=== PATIENT | female | born 1955 | race Caucasian/White ===

== ENCOUNTER → 2016-07-14 | Outpatient (CLI) | payer MEDICARE | LOC: YCFC.O 10:27 | PROVIDERS: ATTEND Nurse Practitioner Family | DX: I10 Essential (primary) hypertension (principal); R73.09 Other abnormal glucose; H35.30 Unspecified macular degeneration; M54.16 Radiculopathy, lumbar region; E78.5 Hyperlipidemia, unspecified; K21.9 Gastro-esophageal reflux disease without esophagitis; R53.83 Other fatigue ==

== ENCOUNTER → 2016-07-17 | Outpatient (CLI) | payer MEDICARE ==
--- NOTE | 2016-07-17 16:37 | US ---
EXAM DESCRIPTION: Thyroid CLINICAL HISTORY: ENLARGED THYROID COMPARISON: None. TECHNIQUE: Routine sonographic imaging of the thyroid gland. FINDINGS: Right thyroid lobe is normal in size and echogenicity measuring 4.3 x 1.5 x 1.4 cm. Hypoechoic well-defined nodule is observed in the upper right thyroid lobe measuring 7 x 6 x 5 mm . It may represent a small cyst is No hyperemia. Thyroid isthmus is normal in appearance measuring 0.2 cm. Left thyroid lobe is normal in size and echogenicity measuring 4.2 x 1.5 x 1.2 cm. A tiny well-defined hypoechoic nodules observed in the upper left thyroid lobe measuring 3 x 1 x 2 mm. It may represent a small cyst. No hyperemia. IMPRESSION: Small hypoechoic regions are observed in both thyroid lobes and are suspected represent small cysts. No worrisome nodule is detected. Electronically signed by: Gregorio Pascual MD 07/17/2016 4:36 PM [facility]
== END | disposition home or self-care (01) ==
LOC: US 13:19
PROVIDERS: ATTEND Nurse Practitioner Family
DX: E04.9 Nontoxic goiter, unspecified (principal)

== ENCOUNTER 2017-09-11 08:57 | Inpatient (IN) | payer MEDICARE ==
--- NOTE | 2017-09-11 09:06 | ED.PDOC ---
History of Present Illness - General Chief Complaint: Bite: Animal/Insect/Human Stated Complaint: feral cat bite both hands Time Seen by Provider: 09/11/17 09:05 Source: patient Exam Limitations: no limitations - History of Present Illness Initial Comments: Natasha Chase 62 y/o female stated that she was bitten by feral cat on her backyard 09 September 2017 incident reported to animal control and had been searching for the cat.Pain and swelling both hands for the last 2 days.no fever. Timing/Duration: other - see hpi Improving Factors: nothing Worsening Factors: movement Associated Symptoms: other - see hpi Allergies/Adverse Reactions: Allergies Diclofenac [From Voltaren] Allergy (Verified 09/11/17 09:18) Vomitting Home Medications: Ambulatory Orders Alprazolam [Alprazolam Odt] 0.25 mg PO AM PRN 09/28/12 Escitalopram Oxalate [Lexapro] 10 mg PO AM 09/28/12 Gabapentin [Neurontin] 300 mg PO TID 09/28/12 Omeprazole [Prilosec] 20 mg PO AM 09/28/12 Rosuvastatin Calcium [Crestor] 40 mg PO HS 09/28/12 Cranberry-Vitamin C-Probiotic [Azo-Cranberry] 450 mg PO AM PRN 03/07/13 Lisinopril & Hydrochlorothiazi [Lisinopril/Hctz 10-12.5 mg] 1 tab PO DAILY 09/11 Milnacipran HCl [Savella] 50 mg PO BID 09/11/17 Multiple Vitamins W/ Minerals [Ocuvite Preservision] 1 tab PO DAILY 09/11/17 Review of Systems - Review of Systems Constitutional: States: no symptoms reported EENTM: States: no symptoms reported Respiratory: States: no symptoms reported Cardiology: States: no symptoms reported Skin: States: see HPI All other Systems: Reviewed and Negative, No Change from Baseline Past Medical History (General) - Patient Medical History Hx Congestive Heart Failure: No Hx Hypertension: Yes Hx Diabetes: No Surgical History: cholecystectomy, other - hysterectomy - Social History Hx Tobacco Use: No Hx Alcohol Use: Yes Hx Physical Abuse: No Hx Emotional Abuse: No - Activities of Daily Living Grooming Ability: Independent Eating (Feeding) Ability: Independent Toileting Ability: Independent Family Medical History - Family History Mother Family History: Unknown Hx Cardiac Disease: Yes - multiple family members Physical Exam - Physical Exam General Appearance: Alert, Comfortable, No apparent distress Eye Exam: bilateral normal Ears, Nose, Throat: hearing grossly normal, normal ENT inspection Neck: non-tender, full range of motion, supple Respiratory: chest non-tender, lungs clear, normal breath sounds Cardiovascular/Chest: normal peripheral pulses, regular rate, rhythm, no murmur Peripheral Pulses: radial,right: 2+, radial,left: 2+ Gastrointestinal/Abdominal: normal bowel sounds, non tender, soft Back Exam: no CVA tenderness, no vertebral tenderness Extremity: other - pain swelling both hands R>L Neurologic: no motor/sensory deficits, alert, oriented x 3 Skin Exam: normal color, warm/dry, other - multiple linear abrasions palmar area both hands Progress - Progress Progress: 09/11/17 09:26 Vital Signs - 8 hr 09/11/17 09:06 Temperature 99.2 F Pulse Rate [ 88 Right Radial] Respiratory 18 Rate Blood Pressure 143/85 [Left Arm] O2 Sat by Pulse 100 Oximetry - Results/Orders Results/Orders: 09/11/17 09:28 IV Care:Saline Lock per Protoc QSHIFT 09/11/17 12:40 DME - Durable Medical Equip .ONCE 09/11/17 Lunch Regular Diet Laboratory Results - last 24 hr 09/11/17 09/11/17 09/11/17 10:10 10:10 10:10 WBC 9.0 RBC 4.13 L Hgb 13.0 Hct 38.1 MCV 92.0 MCH 31.4 H MCHC 34.2 RDW 12.6 Plt Count 265 MPV 8.6 Absolute Neuts (auto) 6.60 Absolute Lymphs (auto) 1.60 Absolute Monos (auto) 0.70 Absolute Eos (auto) 0.00 Absolute Basos (auto) 0.00 Neutrophils % 73.6 Lymphocytes % 17.9 L Monocytes % 7.9 Eosinophils % 0.3 L Basophils % 0.3 Sodium 133 L Potassium 3.5 L Chloride 95 L Carbon Dioxide 26 Anion Gap 15.5 BUN 16 Creatinine 0.94 BUN/Creatinine Ratio 17.0 Random Glucose 104 Serum Osmolality 267.9 L Lactic Acid 1.2 Calcium 9.5 C-Reactive Protein 10.1 H* - EKG/XRAY/CT XRAY: hand - no acute abnormalities Departure - Departure Clinical Impression: Cellulitis and abscess of hand Cat bite of hand Qualifiers: Encounter type: initial encounter Laterality: right Qualified Code(s): S61.451A - Open bite of right hand, initial encounter Time of Disposition: 12:25 Disposition: Admit Patient Condition: Fair Departure Forms: Patient Portal Self Enrollment Instructions: DI for Animal Bites Referrals: [place] Olguin, [employer] [Primary Care Provider] - 1-2 Weeks Home Medications: Ambulatory Orders Alprazolam [Alprazolam Odt] 0.25 mg PO AM PRN 09/28/12 Escitalopram Oxalate [Lexapro] 10 mg PO AM 09/28/12 Gabapentin [Neurontin] 300 mg PO TID 09/28/12 Omeprazole [Prilosec] 20 mg PO AM 09/28/12 Rosuvastatin Calcium [Crestor] 40 mg PO HS 09/28/12 Cranberry-Vitamin C-Probiotic [Azo-Cranberry] 450 mg PO AM PRN 03/07/13 Lisinopril & Hydrochlorothiazi [Lisinopril/Hctz 10-12.5 mg] 1 tab PO DAILY 09/11 Milnacipran HCl [Savella] 50 mg PO BID 09/11/17 Multiple Vitamins W/ Minerals [Ocuvite Preservision] 1 tab PO DAILY 09/11/17 Decision To Admit - Decistion To Admit Decision to Admit Reason: Admit from ER - D/W Bianka Crandall -RONEY/Hospitalist for admit Decision to Admit Date: 09/11/17 Decision to Admit Time: 12:44
[2017-09-11] MEDS ORDERED: TETANUS,DIPHTHERIA,PERTUSSIS 1 EA SYG IM ONE (09:28)
[2017-09-11] MEDS ORDERED: AMPICILLIN & SULBACTAM SODIUM 3 GM in SODIUM CHL 0.9% 100ML MINI-BAG 100 ML IVPB ONE (09:28)
[2017-09-11] MEDS ORDERED: levoFLOXacin 500 MG TAB PO ONE (09:29)
[2017-09-11] MEDS ORDERED: AMPICILLIN & SULBACTAM SODIUM 3 GM VIAL ONE ×3 (10:18→20:03)
[2017-09-11] MEDS ORDERED: SODIUM CHL 0.9% 100ML MINI-BAG 100 ML IVPB ONE ×3 (10:18→20:03)
--- NOTE | 2017-09-11 10:33 | RAD ---
EXAM DESCRIPTION: Hand,Left 2 Views CLINICAL HISTORY: pain COMPARISON: EXAM DESCRIPTION: Hand,Left 2 Views CLINICAL HISTORY: pain COMPARISON: None Available. TECHNIQUE: AP, LATERAL, AND OBLIQUE FINDINGS: Two-view left hand shows no fracture or dislocation. There is no bone lesion. Bones appear osteopenic. Somewhat narrowed appearance of the DIP joints is noted. Degenerative changes are seen in the lateral carpus at the first carpometacarpal joint. Mild degenerative changes at the interphalangeal joint of the thumb and first metacarpal phalangeal joint. IMPRESSION: Osteopenia with degenerative arthritic changes as described. Electronically signed by: Steve Swenson MD 09/11/2017 10:31 AM CDT
--- NOTE | 2017-09-11 10:34 | RAD ---
EXAM DESCRIPTION: Hand,Right 2 Views CLINICAL HISTORY: pain COMPARISON: None Available. TECHNIQUE: AP, LATERAL FINDINGS: Two-view right hand shows no fracture or dislocation. There is no bone lesion. Degenerative narrowing of the DIP and PIP joints is seen. Degenerative changes at the lateral carpus are mild. Bones appear osteopenic. Tiny periarticular cystic lucencies are seen due to the DIP joints and in the distal aspect of the proximal phalanx of the fourth finger. IMPRESSION: Osteopenic a appearance of the bones with mild degenerative changes. Electronically signed by: Steve Swenson MD 09/11/2017 10:33 AM CDT
[2017-09-11] MEDS ORDERED: ACETAMINOPHEN 500 MG TAB PO ONE (13:49)
--- NOTE | 2017-09-11 14:39 | HP ---
SUPERVISING PHYSICIAN: Jered Marte MD CHIEF COMPLAINT: Right hand pain due to cat bite. HISTORY OF PRESENT ILLNESS: This is a 62 year-old female patient who presented to the Emergency Room today after she was bitten by a feral cat on Thursday. Her house cat was being attacked by a feral cat and she tried to pull her off resulting in several puncture wounds to the hypothenar eminence of her right hand as well as her right wrist. It has increased in swelling and pain over the last two days to the point she had no relief and came to the Emergency Room. In the Emergency Room, her WBCs were normal at 9 and her hemoglobin was 13, hematocrit 38.1 but her C-reactive protein was 10.1 with a sodium of 133, potassium 3.5, chloride 95 and serum osmolality of 267.9. Her lactic acid was 1.2. Blood cultures were also drawn. She was given some Levaquin and some Unasyn. Right hand x-ray showed osteopenic appearance of the bones with mild degenerative changes and the left hand shows osteopenia with degenerative arthritic changes. Dr. Sharma was called and recommended an orthopedic consultation. I called Dr. Cole Julien as well as Dr. Marte and they recommended she be treated with antibiotics and watched closely. PAST MEDICAL HISTORY: 1. Anxiety and depression. 2. Hyperlipidemia. 3. Chronic back pain due to degenerative spinal disease. 4. Hypertension. 5. Gastroesophageal reflux disease. 6. Osteoarthritis. PAST SURGICAL HISTORY: 1. Hysterectomy. 2. Appendectomy. 3. Cholecystectomy. 4. Left shoulder surgery repair. CURRENT MEDICATIONS: Outpatient medications are as per the EMR and awaiting verification. ALLERGIES: Diclofenac. SOCIAL HISTORY: She lives in [place]. She is . She denies any tobacco, ETOH or illicit drug use. REVIEW OF SYSTEMS: GENERAL: Denies fever, fatigue or weight changes. HEENT: Negative for sinus pain, ear pain, vision changes or sore throat. RESPIRATORY: Negative for coughing, wheezing, shortness of breath CARDIAC: Negative for chest pain, tachycardia or palpitations.. GI: Negative for abdominal pain, nausea, vomiting, diarrhea. GENITOURINARY: Negative for dysuria, hematuria, polyuria/ MUSCULOSKELETAL: Negative for myalgias, arthralgias. . SKIN: As per history of present illness. . NEURO: Negative for dizziness, headache or seizures. PHYSICAL EXAMINATION: VITAL SIGNS: Temperature 99.5, heart rate 79, blood pressure 132/84, respiratory rate 20, 02 saturation 98% on room air. GENERAL: This is a 62 year-old female patient who is lying in her hospital bed. She is in no acute distress. HEENT: Normocephalic and atraumatic. Pupils are equal and reactive. Oropharynx is clear. NECK: Supple without mass. . CHEST: Essentially clear to auscultation bilaterally. Chest has equal rise and fall of the chest with inspiration and expiration. CARDIOVASCULAR: Regular rate and rhythm. ABDOMEN: Soft, nondistended, non-tender. Bowel sounds are positive. EXTREMITIES: There is erythema and edema to the dorsal surface of the right hand and she has sausage-like fingers to the third, fourth and fifth proximal phalanges. The patient can extend her fingers with minimal pain in her fingers and has minimal pain with passive motion. There are multiple puncture wounds to the hypothenar eminence of the garcia surface of her right hand and she has multiple puncture wounds to the distal portion of her right arm on the medial aspect of her wrist. She has 3 long scratches on the garcia surface of her left hand, approximately 2 inches in length each, but minimal erythema and no edema. LYMPHATIC: There is no axillary lymphadenopathy. NEUROLOGIC: She is awake, alert and oriented x3. LABS AND FILMS: As per the history of present illness. ASSESSMENT: 1. Cellulitis of the right hand and right wrist due to a feral cat bite with concerns for flexor tenosynovitis. 2. Anxiety and depression. 3. Hypertension. 4. Hyperlipidemia. 5. Chronic back pain due to degenerative spinal disease. 6. Osteoarthritis. PLAN: We will admit the patient to the hospital. I have continued her home medications. She will be placed on vancomycin per pharmacy protocol as well as continue the Unasyn. I will repeat her labs in the morning. She is to elevate her hand as well as ice packs to that right hand. I have given her hydrocodone for pain. I spoke with Indiana Fleming at [facility] in [place], she is the RN at [facility]. Her telephone number is [phone]. According to Ms. Fleming, the patient is to start her rabies shows within 14 days of the bite. It is easier for the patient to be treated for rabies as an outpatient and her primary care physician is Breanne Olguin at [facility]. After discharge, it is recommended that her PCP call Indiana Fleming to arrange for the rabies shots within 14 days of the bite. It may also be beneficial to contact Animal Control as it would be preferable if the feral cat is captured that the head be sent for testing. Otherwise, we will plan on a couple of days of IV antibiotic therapy and to be sent home on some Augmentin. We will continue to monitor closely and follow as needed. Dr. Marte is the collaborating physician available for consultation. [facility][id number] [facility]
[2017-09-11] MEDS ORDERED: SODIUM CHLORIDE 0.9% (FLUSH) 10 ML SYG IV PRN (15:28)
[2017-09-11] MEDS ORDERED: PANTOPRAZOLE SODIUM IV 40 MG VIAL IV SCH (16:00)
[2017-09-11] MEDS ORDERED: VANCOMYCIN PER PHARMACY INJ SCH (16:00)
[2017-09-11] MEDS ORDERED: VANCOMYCIN HCL INJ 1,750 MG in SODIUM CHLORIDE 0.9% 500ML 500 ML IVPB SCH (16:00)
[2017-09-11] MEDS: KCL 20 MEQ/NS 1,000 ML IVS PRN (16:04)
[2017-09-11] MEDS: ENOXAPARIN SODIUM 40 MG/0.4 ML SYG SUBCU SCH (16:05)
[2017-09-11] MEDS: AMPICILLIN & SULBACTAM SODIUM 3 GM in SODIUM CHL 0.9% 100ML MINI-BAG 100 ML IVPB SCH ×2 (16:05→22:17)
[2017-09-11] MEDS: IV SET AND CAP CHANGE INJ INJ SCH (16:17)
[2017-09-11] MEDS ORDERED: SODIUM CHLORIDE 0.9% 500ML 500 ML ONE ×2 (17:00→17:07)
[2017-09-11] MEDS ORDERED: VANCOMYCIN HCL INJ 1,000 MG VIAL IVPB ONE (17:00)
[2017-09-11] MEDS: VANCOMYCIN HCL INJ 1,750 MG in SODIUM CHLORIDE 0.9% 500ML 500 ML IVPB SCH (17:05)
[2017-09-11] MEDS ORDERED: SODIUM CHLORIDE 0.9% (FLUSH) 10 ML SYG IV SCH (21:00)
[2017-09-11] MEDS ORDERED: NON-FORMULARY MEDICATION 1 EA MIS (Rosuvastatin Calcium [Crestor] 40 MG) PO SCH (21:00)
[2017-09-11] MEDS: GABAPENTIN 300 MG CAP PO SCH (22:12)
[2017-09-11] MEDS: HYDROcodone 5MG/APAP 325MG 1 EA TAB PO PRN (22:15)
[2017-09-11] MEDS: MILNACIPRAN HCL 50 MG PO SCH (22:37)
[2017-09-12] MEDS ORDERED: SODIUM CHL 0.9% 100ML MINI-BAG 100 ML IVPB ONE ×4 (03:51→20:14)
[2017-09-12] MEDS ORDERED: AMPICILLIN & SULBACTAM SODIUM 3 GM VIAL ONE ×4 (03:51→20:14)
[2017-09-12] MEDS: AMPICILLIN & SULBACTAM SODIUM 3 GM in SODIUM CHL 0.9% 100ML MINI-BAG 100 ML IVPB SCH ×4 (03:55→21:38)
[2017-09-12] MEDS: PANTOPRAZOLE SODIUM TAB 40 MG PO SCH (06:20)
[2017-09-12] MEDS ORDERED: NON-FORMULARY MEDICATION 1 EA MIS (Lisinopril & Hydrochlorothiazi [Lisinopril/Hctz 10-12.5 PO SCH (09:00)
[2017-09-12] MEDS: hydroCHLOROthiazide 12.5 MG CAP PO SCH (09:43)
[2017-09-12] MEDS: GABAPENTIN 300 MG CAP PO SCH ×3 (09:43→21:16)
[2017-09-12] MEDS: ENOXAPARIN SODIUM 40 MG/0.4 ML SYG SUBCU SCH (09:43)
[2017-09-12] MEDS: LISINOPRIL 10 MG TAB PO SCH (09:43)
[2017-09-12] MEDS: MILNACIPRAN HCL 50 MG PO SCH ×2 (09:45→21:30)
[2017-09-12] MEDS: ESCITALOPRAM 10 MG TAB PO SCH (09:45)
[2017-09-12] MEDS: KCL 20 MEQ/NS 1,000 ML IVS PRN (09:47)
[2017-09-12] MEDS: HYDROcodone 5MG/APAP 325MG 1 EA TAB PO PRN (10:52)
[2017-09-12] MEDS ORDERED: ALPRAZolam 0.25 MG TAB PO PRN (11:16)
[2017-09-12] MEDS ORDERED: SODIUM CHLORIDE 0.9% 500ML 500 ML ONE (16:04)
[2017-09-12] MEDS ORDERED: VANCOMYCIN HCL INJ 1,000 MG VIAL IVPB ONE (16:05)
--- NOTE | 2017-09-12 16:31 | PN ---
DATE: 09/12/17 SUPERVISING PHYSICIAN: Darinel Gonzalez M.D. SUBJECTIVE: The patient is in bed with her hand elevated. She reports that her swelling is much less than when she came in. Fingers are much less swollen. She is afebrile. OBJECTIVE: T max 99.7, pulse 67, blood pressure 113/76, respirations 16, satting 100% on room air. CHEST: Lungs are clear to auscultation. HEART: Regular rate and rhythm. ABDOMEN: Soft, non-tender. Positive bowel sounds. EXTREMITIES: Right hand continues to show erythema and swelling in the areas that were marked. The fingers have shown a significant decrease, receding below the bruce on each digit. She was able to flex and extend her wrist. Complains of some discomfort on the puncture wound. No areas of consolidation. The forearm shows no evidence of swelling being isolated to the hand. Distally pulse are brisk bilaterally. NEUROLOGIC: She is alert and oriented times three. LABORATORY: White count remains within normal limits at 7,600, hemoglobin 10.7 , hematocrit 31.1, platelet count 239,000. Chemistries show normal electrolytes today with potassium 3.6, BUN 20, creatinine 0.97, calcium 8.3 within normal limits. ASSESSMENT: 1. Cellulitis of the right hand and right wrist due to a cat bite, improving with vancomycin and Unasyn. 2. Hypertension, stable. 3. Hyperlipidemia. 4. Chronic back pain due to degenerative spinal disease. 5. Osteoarthritis. PLAN: I will continue current IV antibiotics to include vancomycin and Unasyn. She is encouraged to keep her hand elevated and utilize ice p.r.n. I did discuss with her the need to start the rabies vaccination preferably on Thursday or Thursday. Will anticipate discharge hopefully Thursday or Thursday. Until then continue to monitor closely. #[id number] [facility]
[2017-09-12] MEDS: VANCOMYCIN HCL INJ 1,750 MG in SODIUM CHLORIDE 0.9% 500ML 500 ML IVPB SCH (17:16)
[2017-09-12] MEDS: ATORVASTATIN 20 MG TAB PO SCH (21:16)
[2017-09-13] MEDS ORDERED: AMPICILLIN & SULBACTAM SODIUM 3 GM VIAL ONE ×4 (03:56→20:02)
[2017-09-13] MEDS ORDERED: SODIUM CHL 0.9% 100ML MINI-BAG 100 ML IVPB ONE ×4 (03:56→20:01)
[2017-09-13] MEDS: AMPICILLIN & SULBACTAM SODIUM 3 GM in SODIUM CHL 0.9% 100ML MINI-BAG 100 ML IVPB SCH ×4 (04:10→21:52)
[2017-09-13] MEDS: KCL 20 MEQ/NS 1,000 ML IVS PRN ×2 (04:13→14:47)
[2017-09-13] MEDS: PANTOPRAZOLE SODIUM TAB 40 MG PO SCH (06:13)
[2017-09-13] MEDS: LISINOPRIL 10 MG TAB PO SCH (09:22)
[2017-09-13] MEDS: GABAPENTIN 300 MG CAP PO SCH ×3 (09:22→20:30)
[2017-09-13] MEDS: ESCITALOPRAM 10 MG TAB PO SCH (09:22)
[2017-09-13] MEDS: ENOXAPARIN SODIUM 40 MG/0.4 ML SYG SUBCU SCH (09:23)
[2017-09-13] MEDS: hydroCHLOROthiazide 12.5 MG CAP PO SCH (09:23)
[2017-09-13] MEDS: MILNACIPRAN HCL 50 MG PO SCH ×2 (09:29→21:25)
[2017-09-13] MEDS ORDERED: SODIUM CHLORIDE 0.9% 500ML 500 ML ONE (16:06)
[2017-09-13] MEDS ORDERED: VANCOMYCIN HCL INJ 1,000 MG VIAL IVPB ONE (16:07)
[2017-09-13] MEDS: VANCOMYCIN HCL INJ 1,750 MG in SODIUM CHLORIDE 0.9% 500ML 500 ML IVPB SCH (17:16)
--- NOTE | 2017-09-13 18:32 | PN ---
DATE: 09/13/17 SUPERVISING PHYSICIAN: Darinel Gonzalez M.D. SUBJECTIVE: The patient notes that her pain is much less today. She is actually able to better flex and extend as well as supinate the wrist. She has been keeping the arm elevated and the wrist in neutral position. She is encouraged to actively work on range of motion throughout the day. She does remain afebrile. OBJECTIVE: Temperature 98.4, pulse 72, blood pressure 105/69, respirations 18, satting 97% on room air. CHEST: Lungs are clear to auscultation. HEART: Regular rate and rhythm. ABDOMEN: Soft, non-tender. Positive bowel sounds. EXTREMITIES: Right hand shows a significant decrease in amount of erythema and edema with the fingers back to near normal size. She still has some pain with both flexion and extension, but has much better range of motion and is able to supinate the wrist without any significant pain. The actual puncture sites around the ulna show continued erythema but decreased edema with no areas of consolidation. Sensation remains intact and capillary refill is brisk. NEUROLOGIC: She is alert and oriented times three. LABORATORY: No laboratory to report. RADIOLOGY: No radiology. ASSESSMENT: 1. Cellulitis of the right hand and right wrist secondary to a feral cat bite showing improvement with vancomycin and Unasyn with the patient having received a tetanus immunization and awaiting on starting of rabies vaccination. 2. Hypertension, stable. 3. Hyperlipidemia. 4. Chronic back pain due to degenerative spinal disease. 5. Osteoarthritis. PLAN: Will continue with current antibiotics at this point with vancomycin and Unasyn as she is showing good improvement. Again, she is encouraged to keep her hand elevated and to keep her wrist in a neutral position, and utilize active range of motion throughout the day to prevent any stiffening of the wrist. I have ordered a physical therapy consultation in the morning. I will discuss discharge planning in regards to antibiotic therapy required for discharge with Dr. Garland, Infectious Disease specialist on Thursday with anticipation of discharging more likely on late Thursday or Thursday. I will touch base with her primary care provider and make arrangements for the initial dose of rabies vaccination hopefully prior to discharge. Until discharge will continue to monitor and treat appropriately. #[id number] [facility]
[2017-09-13] MEDS: HYDROcodone 5MG/APAP 325MG 1 EA TAB PO PRN (20:29)
[2017-09-13] MEDS: ATORVASTATIN 20 MG TAB PO SCH (20:30)
[2017-09-14] MEDS ORDERED: SODIUM CHL 0.9% 100ML MINI-BAG 100 ML IVPB ONE ×3 (04:16→15:19)
[2017-09-14] MEDS ORDERED: AMPICILLIN & SULBACTAM SODIUM 3 GM VIAL ONE ×3 (04:16→15:19)
[2017-09-14] MEDS: AMPICILLIN & SULBACTAM SODIUM 3 GM in SODIUM CHL 0.9% 100ML MINI-BAG 100 ML IVPB SCH ×3 (04:20→15:39)
[2017-09-14] MEDS: PANTOPRAZOLE SODIUM TAB 40 MG PO SCH (06:01)
[2017-09-14] MEDS: GABAPENTIN 300 MG CAP PO SCH ×3 (09:26→20:20)
[2017-09-14] MEDS: ESCITALOPRAM 10 MG TAB PO SCH (09:26)
[2017-09-14] MEDS: ENOXAPARIN SODIUM 40 MG/0.4 ML SYG SUBCU SCH (09:27)
[2017-09-14] MEDS: LISINOPRIL 10 MG TAB PO SCH (09:27)
[2017-09-14] MEDS: MILNACIPRAN HCL 50 MG PO SCH ×2 (09:27→20:24)
[2017-09-14] MEDS: hydroCHLOROthiazide 12.5 MG CAP PO SCH (09:27)
[2017-09-14] MEDS: KCL 20 MEQ/NS 1,000 ML IVS PRN (09:29)
[2017-09-14] MEDS: HYDROcodone 5MG/APAP 325MG 1 EA TAB PO PRN (11:33)
[2017-09-14] MEDS: IV SET AND CAP CHANGE INJ INJ SCH (16:30)
[2017-09-14] MEDS ORDERED: AMOXICILLIN & POT CLAVULANATE 875 MG TAB PO ONE (19:21)
[2017-09-14] MEDS ORDERED: NON-FORMULARY MEDICATION 1 EA MIS IM ONE ×2 (20:00)
[2017-09-14] MEDS: ATORVASTATIN 20 MG TAB PO SCH (20:20)
[2017-09-14] MEDS: DOXYCYCLINE HYCLATE CAP 100 MG CAP PO SCH (20:20)
[2017-09-15] MEDS: PANTOPRAZOLE SODIUM TAB 40 MG PO SCH (06:09)
[2017-09-15] MEDS: ESCITALOPRAM 10 MG TAB PO SCH (08:16)
[2017-09-15] MEDS: GABAPENTIN 300 MG CAP PO SCH (08:16)
[2017-09-15] MEDS: DOXYCYCLINE HYCLATE CAP 100 MG CAP PO SCH (08:16)
[2017-09-15] MEDS: LISINOPRIL 10 MG TAB PO SCH (08:17)
[2017-09-15] MEDS: hydroCHLOROthiazide 12.5 MG CAP PO SCH (08:17)
[2017-09-15] MEDS: MILNACIPRAN HCL 50 MG PO SCH (08:17)
[2017-09-15] MEDS: ENOXAPARIN SODIUM 40 MG/0.4 ML SYG SUBCU SCH (08:17)
[2017-09-15] MEDS ORDERED: AMOXICILLIN & POT CLAVULANATE 875 MG TAB PO SCH (09:00)
[2017-09-15 09:12] VITALS: BP 108/74; TEMP 98.5; O2SAT 99
--- NOTE | 2017-09-16 08:33 | PN ---
DATE: 09/14/17 SUPERVISING PHYSICIAN: Darinel Gonzalez M.D. SUBJECTIVE: The patient was doing well with notable decrease of her pain. She was able to flex and extend her wrist and supinate without difficulty. She was afebrile. She was having no nausea or vomiting or any side effects from her treatment. Arrangements were made for the rabies immunoglobin and initial rabies vaccine. The plan was that she was to receive both injections and be discharged home to continue the p.o. medications, however, the medications did not arrive until late evening on 09/14 and was not able to secure a ride home. Therefore, she was to be discharged the following day. Friends were able to secure the vaccines and immunoglobulin at [facility] in [place] with the medications secured in the pharmacy refrigerator at [facility] with plans to have those transported to [facility] for continued administration. She was afebrile. OBJECTIVE: VITAL SIGNS: T max 98.6, pulse 77, blood pressure 63370, respirations 16, satting 96% on room air. Weight 87.5 kg. I&O: Positive balance of 300 with 1300 in and 1000 out. CHEST: Lungs clear to auscultation. HEART: Regular rate and rhythm. ABDOMEN: Soft, nontender. Positive bowel sounds. EXTREMITIES: Right hand is showing immunocompromised in regards to the edema and erythema which with just a minimal area of erythema overlying the ulna and wrist both on the dorsal and garcia area with patient showing just a trace of edema in her hands and fingers with her able to move all the digits and spinate and pronate her wrist as well as flex and extend. There were no areas of drainage. The bite injuries were showing to be healing without complications. Distally, sensations were intact with no reported paresthesias and capillary refill was brisk. NEUROLOGIC: She is alert and oriented times three. LABORATORY/RADIOGRAPHIC: There was no repeat laboratory or radiographic studies. ASSESSMENT: 1. Cellulitis of the right hand and right wrist secondary to a feral cat bite , improving with vancomycin and Unasyn with patient being transitioned to oral therapy with Augmentin and Doxycycline awaiting immunization with rabies vaccination and immunoglobulin. 2. Hypertension, stable. 3. Hyperlipidemia. 4. Chronic back pain due to degenerative spinal disease. 5. Osteoarthritis. PLAN: The patient will be transitioned to oral medications to include Augmentin 875 bisected and Doxycycline 100 mg b.i.d. The hope was to discharge the patient home on 09/14/17 once she was able to receive her initial rabies vaccination and immunoglobulin injections. The vaccination immunoglobulin has been secured through [facility] and a friend has been dispatched to pick the medication up at [place]. Once that is available, injections will be administered as ordered and the patient will be discharged home to continue with outpatient therapy for at least an additional 14 days. Again, the patient is encouraged to actively exercise her wrist given what physical therapy had discussed. The plan is to discharge the patient today. Until the, we will continue to monitor and treat appropriately. [facility][id number] [facility]
--- NOTE | 2017-09-21 10:27 | DS ---
SUPERVISING PHYSICIAN: Qasim Lacy MD DISCHARGE DIAGNOSIS: 1. Cellulitis of the right hand and right wrist secondary to a feral cat bite , showing improvement with vancomycin and Unasyn with patient being transitioned to oral therapy with Augmentin and having received immunization with rabies vaccination as well as immunoglobulin. 2. Hypertension, stable. 3. Hyperlipidemia. 4. Chronic back pain due to degenerative spinal disease. 5. Osteoarthritis. REASON FOR HOSPITALIZATION: Ms. Chase is a 62 year-old female patient who presented to the Emergency Room on 09/11/17 after she was bitten by a feral cat on Thursday prior to admission, 09/09/17. Her house cat was being attacked by a feral cat and she tried to pull them apart resulting in several puncture wounds to the hypothenar eminence of her right hand as well as her right wrist. She had increased in swelling and pain over the last two days prior to admission to the point she had no relief and came to the Emergency Room for further evaluation. In the Emergency Room, her white count was 9, lactic acid 1.2. Initial C-reactive protein was 10.1. Blood cultures were also drawn. She was given some Levaquin and some Unasyn. Right hand x-ray showed osteopenic appearance of the bones with mild degenerative changes and the left hand shows osteopenia with degenerative arthritic changes. Dr. Sharma was called and recommended an orthopedic consultation. Dr. Cole Julien as well as Dr. Marte were called and they recommended she be treated with antibiotics and watched closely. The patient was admitted in stable condition for further treatment. LABORATORY: White count on admission was 9,000 and on discharge was 7,000. Hemoglobin and hematocrit were stable and on discharge were 9.8 and 28.5. Platelet count 264,000. Differential was within normal limits. Chemistries initially on admission showed a low sodium at 133, low potassium 3.5, BUN 16, creatinine 0.94. Prior to discharge, her electrolytes normalized, BUN 13, creatinine 0.87, calcium 8.7. Initial lactic acid on admission was 1.2. C- reactive protein in the Emergency Room was 10.1. After treatment and prior to discharge, it had gone down to 2.3. MICROBIOLOGY: Blood cultures remained negative after 5 days. RADIOLOGY: She had multiple x-rays of the hand and per radiologic interpretation there was osteopenic and degenerative changes, arthritic, as described with no acute mention of any fractures or dislocations. Please see those reports for full details. HOSPITAL COURSE: Ms. Chase was admitted through Emergency Room as noted above on 09/11/17 for cellulitis of the right wrist and hand secondary to feral cat bite. She was started on antibiotics to include Unasyn and vancomycin. She showed good response to treatment with the cellulitis improving and edema nearly resolved prior to discharge, but just with some mild edema overlying the initial bites. The patient had good range of motion of her wrist and able to make a fist. She was afebrile. Arrangements were made prior to discharge for initiation of immunoglobulin as well as day 0 rabies vaccination, which were both given on the night before discharge with anticipation the patient would be discharged after that, but the patient was unable secure arrangements to go home and the patient was observed overnight for additional antibiotic therapy and started on p.o. medications. On the morning discharge was stable and continued to improve. Arrangements were made with all immunizations secured from [facility] in [place] and sent to the [facility] for further evaluation with treatment with rabies immunization and followup with Dr. Ibarra. PLAN: The patient was discharged on 09/15/17 with instructions to followup with [facility] and Dr. Ibarra. She was to call [facility] on the morning of discharge to establish followup and resume home medications as directed. She is to receive 3 more injections of the rabies vaccination on 09/17/17, 09/21/17 and 09/28/17, all to be given at [facility]. I discuss with Dr. Ibarra the patient's condition and followup. The initial vaccine and immunoglobulin were secured prior to discharge which she received day 0 and immunoglobin prior to discharge with hospital making arrangements for continuation of vaccination at [facility]. She was instructed to keep the wounds clean with soap and water, to shower, but no tub baths, keep the hand elevated when possible and to continue exercises as instructed by physical therapy. She was told to return to the hospital should she have any concerning symptoms or any questions regarding her care. Diet at discharge was regular diet as tolerated. Activities as per physical therapy. MEDICATIONS AT DISCHARGE: 1. Tylenol with codeine No. 3, 1 as needed q.4h., #30. 2. Augmentin 875 mg q.12h., #20. 3. Doxycycline 100 mg twice daily, #20. 4. Rabies immunoglobulin, Hyperab, given prior to discharge and rabies vaccination 1 mL for 4 doses, day 0 being before discharge on 09/14/17 given at [facility] with additional doses on day 3, 09/17/17 at [facility], and day 7, 09/21/17, with last dose being on 09/28/17, all to be arranged through [facility] with vaccination secured from [facility] in [place]. Condition on discharge was stable and improved. #[id number] [facility]
== END 2017-09-15 08:53 | disposition home or self-care (01) | DRG 603 ==
LOC: ER 08:57 → MS 14:39
PROVIDERS: ADMIT Nurse Practitioner Acute Care; ATTEND Nurse Practitioner Family
DX: L03.113 Cellulitis of right upper limb (principal); E87.1 Hypo-osmolality and hyponatremia; S61.451A Open bite of right hand, initial encounter; S61.551A Open bite of right wrist, initial encounter; M85.88 Other specified disorders of bone density and structure, other site; M19.041 Primary osteoarthritis, right hand; M19.042 Primary osteoarthritis, left hand; F41.9 Anxiety disorder, unspecified; F32.9 Major depressive disorder, single episode, unspecified; E78.5 Hyperlipidemia, unspecified; G89.29 Other chronic pain; M47.9 Spondylosis, unspecified; I10 Essential (primary) hypertension; K21.9 Gastro-esophageal reflux disease without esophagitis; Z88.8 Allergy status to other drugs, medicaments and biological substances; W55.01XA Bitten by cat, initial encounter; E87.6 Hypokalemia

== ENCOUNTER → 2018-09-15 | Outpatient (CLI) | payer MEDICARE | LOC: LAB.O 09:58 | PROVIDERS: ATTEND Nurse Practitioner Family | DX: E78.5 Hyperlipidemia, unspecified (principal); I10 Essential (primary) hypertension; D64.9 Anemia, unspecified ==

== ENCOUNTER → 2018-09-23 | Outpatient (CLI) | payer MEDICARE | LOC: YCFC.O 10:47 | PROVIDERS: ATTEND Nurse Practitioner Family | DX: R01.1 Cardiac murmur, unspecified (principal) ==